=== PATIENT | female | born 1985 | race Caucasian/White ===

== ENCOUNTER 2024-11-14 21:25 | Emergency (ER) | payer SELFPAY ==
[~2024-11-14] VITALS: Ht 170.2 cm; Wt 95.0 kg
[2024-11-14 21:38] VITALS: BP 144/105; PULSE 88; RESP 14; TEMP 36.7; O2SAT 98
[2024-11-14 23:22] LABS: CHLORIDE 103 mEq/L (98-107); POTASSIUM 3.4 mEq/L (3.5-5.1); SODIUM 135 mEq/L (136-145)
[2024-11-14 23:23] LABS: CARBON DIOXIDE 24 mEq/L (21-32)
[2024-11-14 23:24] LABS: CALCIUM 8.9 mg/dL (8.7-10.4)
[2024-11-14 23:28] LABS: CREATININE 0.7 mg/dL (0.6-1.0); GLUCOSE 122 mg/dL (70-105)
[2024-11-14 23:29] LABS: UREA NITROGEN BLOOD 13 mg/dL (9-23)
[2024-11-14 23:30] LABS: ALANINE AMINOTRANSFERASE < 7 IU/L (10-49); ALBUMIN 4.1 g/dL (3.2-4.8); ASPARTATE AMINOTRANSFERASE 15 IU/L (<34)
[2024-11-14 23:31] LABS: BILIRUBIN TOTAL 0.3 mg/dL (0.1-1.0); PROTEIN TOTAL 7.3 g/dL (6.0-8.3)
[2024-11-14 23:40] LABS: HEMATOCRIT. 32.8 % (36.0-48.0); HEMOGLOBIN. 9.8 g/dL (12.0-16.0); MEAN CORPUSCULAR HEMOGLOBIN 19.8 pg (28.0-32.0); MEAN CORPUSCULAR HGB CONC 29.8 g/dL (31.0-37.0); MEAN CORPUSCULAR VOLUME 66.6 fL (81.0-99.0); PLATELET 374 x1000/uL (130-400); RED BLOOD CELL COUNT 4.92 mill/uL (4.2-5.4); RED CELL DISTRIBUTION WIDTH 20.9 % (11.6-14.6); WHITE BLOOD COUNT 3.7 x1000/uL (4.5-11.0)
[2024-11-15 00:06] LABS: HCG SCREEN NEGATIVE
[2024-11-15 00:23] LABS: DIFFERENTIAL COMMENT 1
[2024-11-15] MEDS ORDERED: ONDA-239 PO (00:41)
[2024-11-15 11:46] LABS: ANISOCYTOSIS 1+; HYPOCHROMASIA 1+; MICROCYTOSIS 2+; PLATELET ESTIMATE NORMAL
== END 2024-11-15 03:55 | disposition home or self-care (01) ==
LOC: ER 21:25
DX: R55 Syncope and collapse (principal); F12.90 Cannabis use, unspecified, uncomplicated
CPT/HCPCS: 36415; 71045; 80053; 84703; 85025; 93005; 99285